=== PATIENT | female | born 1980 | race African-American/Black ===

== ENCOUNTER 2024-04-03 09:28 | Emergency (ER) | payer OTHER, SELFPAY ==
[2024-04-03 10:18] LABS: #Basophils 0.03 10x3/uL (0.0-0.2); #Eosinphils 0.13 10x3/uL (0.0-0.5); #Neutrophils 2.55 10x3/uL (1.5-8.4); %Basophils 0.6 % (0.0-2.0); %Eosinophils 2.5 % (0.0-6.0); %Lymphocytes 36.9 % (18.0-47.0); %Monocytes 9.8 % (0.0-10.0); Hematocrit 35.1 % (34.9-44.5); Hemoglobin 11.9 g/dL (12.0-15.5); Mean Corpuscular HGB CONC 33.9 g/dL (32.0-36.0); Mean Corpuscular Hemoglobin 29.5 pg (27.0-33.0); Mean Corpuscular Volume 87.1 fL (81.6-98.3); Mean Platelet Volume 9.8 fL (7.4-10.4); Platelet Count 235 10x3/uL (150-450); RBC Distribution Width 15.1 % (11.5-14.5); Red Blood Cell (RBC) Count 4.03 10x6/uL (3.90-5.03); White Blood Cell (WBC) Count 5.1 10x3/uL (3.5-10.5)
[2024-04-03 10:28] LABS: ALT (SGPT) 16 U/L (8-55); AST (SGOT) 18 U/L (5-34); Albumin 2.7 g/dL (3.5-5.0); Alkaline Phosphatase 47 U/L (40-110); Anion Gap 10 mmol/L (10-20); BUN (Urea Nitrogen) 12 mg/dL (7.0-18.7); Bilirubin, Total 0.2 mg/dL (0.2-1.2); Calc. Creatinine Clearance 0 mL/min (70-130); Calcium 8.4 mg/dL (7.8-10.44); Carbon Dioxide 25 mmol/L (22-29); Chloride 107 mmol/L (98-107); Estimated GFR 102; Glucose 101 mg/dL (70-105); Potassium 3.8 mmol/L (3.5-5.1); Protein, Total 5.7 g/dL (6.0-8.3); Sodium 138 mmol/L (136-145)
[2024-04-03 10:36] LABS: BHCG - Serum Negative (NEGATIVE); Pregs Control Background? CLEAR/WHITE (CLR/WHITE); Pregs Control Bar Appear? YES (CONTROL BAR)
[2024-04-03 11:06] LABS: Bilirubin Neg (Negative); Blood, Urine 150 (Negative); Clarity Slightly Cloudy (Clear); Glucose, Urine (Dipstick) Normal (Negative); Ketone, Urine Negative (Negative); Leukocyte 500 (Negative); Nitrite Positive (Negative); Protein, Urine (Dipstick) 15 mg/dl (Neg-Trace); Urobilinogen Normal mg/dL (Less than 2)
[2024-04-03 11:23] LABS: Bacteria/HPF 3+ HPF (None Seen); CAUTI Indications for Culture Dysuria,urgency,freq; WBC/HPF Greater than 50 HPF (0-3)
[2024-04-03 11:24] LABS: Trichomonas/HPF Rare HPF (None Seen)
[2024-04-03 11:26] LABS: Urine Culture Reflex Yes Yes
== END 2024-04-03 12:10 | disposition home or self-care (01) ==
LOC: CSHERS 09:28
DX: N39.0 Urinary tract infection, site not specified (principal); E88.09 Other disorders of plasma-protein metabolism, not elsewhere classified; A59.01 Trichomonal vulvovaginitis; Z59.7 Insufficient social insurance and welfare support
CPT/HCPCS: 80053; 81001; 84703; 85025; 87077; 87086; 87186; 93005

== ENCOUNTER 2024-09-11 11:21 | Emergency (ER) | payer OTHER ==
[2024-09-11] MEDS ORDERED: Acetaminophen 500 MG TAB ONE (12:45)
[2024-09-11] MEDS ORDERED: predniSONE 20 MG TAB ONE (12:45)
[2024-09-11 13:11] LABS: #Basophils 0.01 10x3/uL (0.0-0.2); #Monocytes 0.54 10x3/uL (0.0-1.1); %Basophils 0.2 % (0.0-2.0); %Lymphocytes 37.7 % (18.0-47.0); %Neutrophils 48.7 % (40.0-75.0); Hematocrit 30.7 % (34.9-44.5); Hemoglobin 9.8 g/dL (12.0-15.5); Mean Corpuscular HGB CONC 31.9 g/dL (32.0-36.0); Mean Corpuscular Hemoglobin 27.2 pg (27.0-33.0); Mean Corpuscular Volume 85.3 fL (81.6-98.3); Mean Platelet Volume 9.9 fL (7.4-10.4); Platelet Count 237 10x3/uL (150-450); RBC Distribution Width 16.3 % (11.5-14.5); White Blood Cell (WBC) Count 4.9 10x3/uL (3.5-10.5)
[2024-09-11] MEDS ORDERED: Pseudoephedrine HCl 30 MG TAB PO SCH (13:15)
[2024-09-11] MEDS ORDERED: guaiFENesin/DM ER PO SCH (13:15)
[2024-09-11 13:20] LABS: Bilirubin Neg (Negative); Blood, Urine Negative (Negative); Clarity Cloudy (Clear); Glucose, Urine (Dipstick) Normal (Negative); Ketone, Urine Negative (Negative); Leukocyte 25 (Negative); Nitrite Negative (Negative); Protein, Urine (Dipstick) 15 mg/dl (Neg-Trace); Specific Gravity, Urine 1.015 (1.005-1.030)
[2024-09-11 13:23] LABS: Pregnancy Test - Urine (BHCG) Negative (Negative); Pregu Control Background? CLEAR/WHITE (CLR/WHITE); Pregu Control Bar Appear? YES (CONTROL BAR); Specific Gravity 1.015 (1.002-1.036)
[2024-09-11 13:27] LABS: ALT (SGPT) 20 U/L (8-55); AST (SGOT) 22 U/L (5-34); Albumin 3.6 g/dL (3.5-5.0); Alkaline Phosphatase 52 U/L (40-110); Anion Gap 10 mmol/L (10-20); BUN (Urea Nitrogen) 11 mg/dL (7.0-18.7); Bilirubin, Total 0.3 mg/dL (0.2-1.2); Calc. Creatinine Clearance 0 mL/min (70-130); Carbon Dioxide 27 mmol/L (22-29); Chloride 104 mmol/L (98-107); Estimated GFR 94; Globulin 3.2 g/dL (2.4-3.5); Glucose 84 mg/dL (70-105); Potassium 3.8 mmol/L (3.5-5.1); Protein, Total 6.8 g/dL (6.0-8.3); Sodium 137 mmol/L (136-145)
[2024-09-11 13:31] LABS: Troponin I Less than 0.010 ng/mL (< 0.028)
[2024-09-11 13:38] LABS: Bacteria/HPF 2+ HPF (None Seen); CAUTI Indications for Culture Pelvic or flank pain; RBC/HPF None Seen HPF (0-3); Squamous Epithelial Greater than 50 HPF (0-3); WBC/HPF 0-3 HPF (0-3)
[2024-09-11 13:39] LABS: Calcium Oxalate Crystals Rare HPF (None Seen)
[2024-09-11 13:40] LABS: Urine Culture Reflex No No
== END 2024-09-11 15:10 | disposition home or self-care (01) ==
LOC: CSHERS 11:21
DX: B34.9 Viral infection, unspecified (principal); R07.81 Pleurodynia; F17.210 Nicotine dependence, cigarettes, uncomplicated
CPT/HCPCS: 36415; 71046; 80053; 81001; 81025; 84484; 85025; 87086; 87428; 87480; 87510; 87660; 93005; J7512